=== PATIENT | female | born 1950 | race Caucasian/White ===

== ENCOUNTER 2018-04-27 11:59 | Outpatient (CLI) | payer MEDICARE | END 2018-04-27 12:00 | disposition home or self-care (01) | LOC: BICMAMMO 11:59 | PROVIDERS: ATTEND Internal Medicine | DX: Z12.31 Encounter for screening mammogram for malignant neoplasm of breast (principal); Z80.3 Family history of malignant neoplasm of breast | CPT/HCPCS: 77063; 77067 ==

== ENCOUNTER 2019-05-18 12:56 | Outpatient (CLI) | payer MEDICARE ==
--- NOTE | 2019-05-18 15:47 | MMO ---
Bilateral MAMMO Bilat Screen [facility]. CLINICAL HISTORY: Patient is 68 years old and is seen for screening. The patient has the following family history of breast cancer: aunt. The patient has a history of melanoma at age 52. VIEWS: The views performed were: bilateral craniocaudal with tomosynthesis and bilateral mediolateral oblique with tomosynthesis. FILMS COMPARED: The present examination has been compared to prior imaging studies performed at [facility] on 08/07/2013 and 01/28/2015, and at [facility] on 02/01/2017 and 04/27/2018. This study has been interpreted with the assistance of computer-aided detection. MAMMOGRAM FINDINGS: There are scattered fibroglandular densities. There are no suspicious masses, suspicious calcifications, or new areas of architectural distortion. IMPRESSION: THERE IS NO MAMMOGRAPHIC EVIDENCE OF MALIGNANCY. A ROUTINE FOLLOW-UP MAMMOGRAM IN 1 YEAR IS RECOMMENDED. THE RESULTS OF THIS EXAM WERE SENT TO THE PATIENT. ACR BI-RADS Category 1 - Negative MAMMOGRAPHY NOTE: 1. A negative mammogram report should not delay a biopsy if a dominant of clinically suspicious mass is present. 2. Approximately 10% to 15% of breast cancers are not detected by mammography. 3. Adenosis and dense breasts may obscure an underlying neoplasm. Reported by: KENYA ALEMAN MD Electonically Signed: [id number]
== END 2019-05-18 12:57 | disposition home or self-care (01) ==
LOC: BICMAMMO 12:56
PROVIDERS: ATTEND Internal Medicine
DX: Z12.31 Encounter for screening mammogram for malignant neoplasm of breast (principal); Z85.820 Personal history of malignant melanoma of skin; Z80.3 Family history of malignant neoplasm of breast
CPT/HCPCS: 77063; 77067

== ENCOUNTER 2019-12-09 10:39 | Emergency (ER) | payer MEDICARE ==
[2019-12-09 11:34] LABS: #Basophils 0.1 thou/uL (0.0-0.2); #Eosinphils 0.1 thou/uL (0.0-0.7); #Lymphocytes 1.3 thou/uL (1.20-3.40); #Monocytes 0.8 thou/uL (0.11-0.59); #Neutrophils 5.7 thou/uL (1.40-6.50); %Basophils 0.8 % (0.0-1.0); %Lymphocytes 16.6 % (21.0-51.0); %Monocytes 10.3 % (0.0-10.0); %Neutrophils 71.3 % (42.0-75.0); Hemoglobin 14.9 g/dL (12.0-16.0); Mean Corpuscular HGB CONC 35.2 g/dL (32.0-36.0); Mean Corpuscular Volume 90.8 fL (78.0-98.0); Mean Platelet Volume 7.1 fL (7.4-10.4); Platelet Count 215 thou/uL (130-400); Red Blood Cell (RBC) Count 4.66 mill/uL (4.20-5.40)
[2019-12-09] MEDS ORDERED: Ondansetron PF 4 MG/2 ML Vial ONE (11:38)
[2019-12-09 11:46] LABS: Bacteria/HPF 4+ HPF (None Seen); Bilirubin Negative (Negative); Blood, Urine Negative (Negative); Clarity Clear (Clear); Glucose, Urine (Dipstick) Normal (Negative); Leukocyte 75 Leu/uL (Negative); Nitrite 2+ (Negative); Protein, Urine (Dipstick) 20 mg/dL (Neg-Trace); RBC/HPF 0-3 HPF (0-3); Squamous Epithelial 0-3 HPF (0-3); Urobilinogen Normal mg/dL (Less than 2); WBC/HPF 0-3 HPF (0-3)
[2019-12-09] MEDS ORDERED: Morphine 4 MG/ML VIAL ONE (11:51)
[2019-12-09 11:55] LABS: ALT (SGPT) 28 U/L (8-55); AST (SGOT) 23 U/L (5-34); Albumin 3.8 g/dL (3.4-4.8); Alkaline Phosphatase 61 U/L (40-110); Anion Gap 12 mmol/L (10-20); BUN (Urea Nitrogen) 12 mg/dL (9.8-20.1); Bilirubin, Total 0.4 mg/dL (0.2-1.2); CK (CPK) 22 U/L (29-168); Calc. Creatinine Clearance 0 mL/min (70-130); Calcium 8.6 mg/dL (7.8-10.44); Carbon Dioxide 25 mmol/L (23-31); Chloride 104 mmol/L (98-107); Estimated GFR-MDRD 69; Globulin 2.7 g/dL (2.4-3.5); Glucose 209 mg/dL (80-115); Lipase 11 U/L (8-78); Potassium 4.3 mmol/L (3.5-5.1); Protein, Total 6.5 g/dL (6.0-8.3)
[2019-12-09 11:58] LABS: Sodium 137 mmol/L (136-145)
[2019-12-09] MEDS ORDERED: Iopamidol-370 76% 500 ML 1 ML ONE (14:20)
--- NOTE | 2019-12-09 16:57 | CT ---
CT ABDOMEN AND PELVIS WITH CONTRAST: Indications: Abdominal pain. Comparison: 07-05-2014 FINDINGS: Lung bases are clear. Liver, spleen, and pancreas unremarkable. Post cholecystectomy change. Mildly prominent common bile d uct again noted. Adrenal glands and kidneys unremarkable. Small bowel loops are normal. Colon again shows diverticulosis with sigmoid colon. There is mild mural thickening in the sigmoid an d rectum which is nonspecific. Mild stranding around the sigmoid probably represents chronic changes from prior diverticulitis which is documented on the 2014 study. No definite acute diverticulitis see n at this time. There is no extraluminal fluid, gas, or abscess. IMPRESSION: 1. Diverticulosis of the sigmoid again noted with some peripheral stranding which is probably chronic . No acute process identified. POS: [place]
--- NOTE | 2019-12-10 12:01 | EKG ---
Test Reason : Blood Pressure : / mmHG Vent. Rate : 065 BPM Atrial Rate : 065 BPM P-R Int : 126 ms QRS Dur : 072 ms QT Int : 426 ms P-R-T Axes : 019 -17 034 degrees QTc Int : 443 ms Normal sinus rhythm Septal infarct , age undetermined Abnormal ECG Confirmed by MARTINEZ ALMEIDA, ([id number]), web editor JENNIFER SRIVASTAVA ([id number]) on 12/10/2019 12:01:25 PM Referred By: Confirmed By:MICHAEL HENRIQUEZ MD
== END 2019-12-09 16:22 | disposition home or self-care (01) ==
LOC: ERS 10:39
DX: K57.32 Diverticulitis of large intestine without perforation or abscess without bleeding (principal); E11.9 Type 2 diabetes mellitus without complications; I10 Essential (primary) hypertension; K21.9 Gastro-esophageal reflux disease without esophagitis; F32.9 Major depressive disorder, single episode, unspecified; Z87.891 Personal history of nicotine dependence; Z79.899 Other long term (current) drug therapy
CPT/HCPCS: 36415; 51701; 74177; 80053; 81003; 81015; 82550; 83690; 83880; 84484; 85025; 93005; 96374; J2270; J2405; Q9967

== ENCOUNTER 2020-02-18 02:17 | Emergency (ER) | payer MEDICARE ==
[2020-02-18] MEDS ORDERED: Lidocaine Viscous Sol 2% 15 ml UD Cup ONE (03:04)
[2020-02-18] MEDS ORDERED: Mag-Al 1200 mg/1200 mg/30 ML UDCUP ONE (03:04)
--- NOTE | 2020-02-18 08:31 | RAD ---
RIGHT HIP 2 VIEWS: HISTORY: Fall, right hip pain. FINDINGS/IMPRESSION: No fracture or dislocation is seen. POS: OFF
--- NOTE | 2020-02-18 08:31 | RAD ---
AP PELVIS: HISTORY: Fall, right hip pain. FINDINGS/IMPRESSION: No acute fracture or dislocation. POS: OFF
--- NOTE | 2020-02-18 09:09 | CT ---
PRELIMINARY REPORT/[facility]/EMERGENCY AFTER HOURS PROCEDURE: EXAM: CT right Hip, without IV contrast. CLINICAL HISTORY: ER 9... Patient reports she tripped and fell earlier tonight. Patient reports she l anded on her buttocks, denies hitting her head. Patient is c/o right hip pain. Pt states pain starts at rt hip with radiation to mid thigh TECHNIQUE: Axial images were acquired through the right hip without IV contrast. Reformatted images w ere reviewed. COMPARISON: None provided. FINDINGS: BONES: No acute fracture. Multiple bone islands in the right proximal femur and acetabulum. JOINTS: Osteoarthrosis of the right knee, hip, SI joint, and pubic symphysis. No joint effusion. SOFT TISSUES: Sigmoid colon diverticulosis without evidence of diverticulitis. IMPRESSION: 1. No acute fracture. Of note, CT is not sensitive for the evaluation of stress fractures. If the p atient cannot bear weight, or recommend nonweightbearing precautions and follow-up MRI. 2. Sigmoid colon diverticulosis without evidence of diverticulitis. 3. Osteoarthrosis of the right knee, hip, SI joint, and pubic symphysis. ELECTRONICALLY SIGNED BY: Theo Colon DO Feb 18, 2020 4:19:00 AM CDT FINAL REPORT CT RIGHT HIP WITHOUT IV CONTRAST: I agree with the preliminary report given by Dr. Theo Colon of [facility]. POS: OFF
== END 2020-02-18 06:50 | disposition home or self-care (01) ==
LOC: ERS 02:17
DX: S70.01XA Contusion of right hip, initial encounter (principal); E11.9 Type 2 diabetes mellitus without complications; K21.9 Gastro-esophageal reflux disease without esophagitis; I10 Essential (primary) hypertension; F41.9 Anxiety disorder, unspecified; F32.9 Major depressive disorder, single episode, unspecified; Z87.891 Personal history of nicotine dependence; Z79.899 Other long term (current) drug therapy; W18.30XA Fall on same level, unspecified, initial encounter
CPT/HCPCS: 51701; 72170

== ENCOUNTER 2022-04-28 13:22 | Outpatient (CLI) | payer MEDICARE | END 2022-04-28 13:23 | disposition home or self-care (01) | LOC: BICMAMMO 13:22 | PROVIDERS: ATTEND Internal Medicine | DX: N64.52 Nipple discharge (principal); N63.25 Unspecified lump in the left breast, overlapping quadrants | CPT/HCPCS: 76642 ×2; 77066; G0279 ==

== ENCOUNTER 2024-05-02 21:54 | Inpatient (IN) | payer MEDICARE ==
[2024-05-02 22:21] LABS: #Basophils 0.06 10x3/uL (0.0-0.2); %Basophils 0.7 % (0.0-1.0); %Eosinophils 1.8 % (0.0-10.0); %Lymphocytes 26.4 % (21.0-51.0); %Monocytes 7.6 % (0.0-10.0); %Neutrophils 63.3 % (42.0-75.0); Hematocrit 34.1 % (36.0-47.0); Hemoglobin 11.4 g/dL (12.0-16.0); Mean Corpuscular HGB CONC 33.4 g/dL (32.0-36.0); Mean Corpuscular Hemoglobin 30.2 pg (27.0-31.0); Mean Corpuscular Volume 90.2 fL (78.0-98.0); Mean Platelet Volume 9.6 fL (7.4-10.4); Platelet Count 160 10x3/uL (130-400); RBC Distribution Width 13.2 % (11.5-14.5); Red Blood Cell (RBC) Count 3.78 mill/uL (4.20-5.40)
[2024-05-02] MEDS ORDERED: Atropine Sulfate 1 mg/10 ml Syringe ONE (22:32)
[2024-05-02 22:42] LABS: ALT (SGPT) 10 U/L (8-55); AST (SGOT) 14 U/L (5-34); Albumin 3.4 g/dL (3.4-4.8); Alkaline Phosphatase 66 U/L (40-110); Anion Gap 14 mmol/L (10-20); BUN (Urea Nitrogen) 18 mg/dL (9.8-20.1); Bilirubin, Total 0.4 mg/dL (0.2-1.2); Calc. Creatinine Clearance 0 mL/min (70-130); Calcium 7.8 mg/dL (7.8-10.44); Carbon Dioxide 21 mmol/L (23-31); Chloride 106 mmol/L (98-107); Estimated GFR 68; Globulin 2.5 g/dL (2.4-3.5); Glucose 286 mg/dL (83-110); Potassium 3.9 mmol/L (3.5-5.1); Protein, Total 5.9 g/dL (5.8-8.1); Sodium 137 mmol/L (136-145)
[2024-05-02 22:59] LABS: Magnesium 1.8 mg/dL (1.6-2.6)
[2024-05-02] MEDS ORDERED: tiZANidine HCl 4 MG TAB PO PRN (23:42)
[2024-05-02] MEDS ORDERED: Insulin Lispro 100 UNIT/ML 10 ML VIAL SC PRN ×2 (23:43)
[2024-05-02] MEDS ORDERED: Dextrose 50% Abboject 50 ML SYRINGE SLOW IVP PRN (23:43)
[2024-05-02] MEDS ORDERED: Glucagon 1 MG/ML KIT IM PRN (23:43)
[2024-05-02] MEDS ORDERED: Dextrose 5% in Water 1,000 ML IV PRN (23:43)
[2024-05-03] MEDS ORDERED: Ondansetron ODT 4 MG TAB PO PRN (00:26)
[2024-05-03] MEDS ORDERED: Ondansetron PF 4 MG/2 ML Vial IVP PRN (00:26)
[2024-05-03] MEDS ORDERED: Calcium Carbonate 500 MG ChewTAB PO PRN (00:26)
[2024-05-03] MEDS ORDERED: Ipratropium/Albuterol 3 ML NEB NEB PRN (00:33)
[2024-05-03 00:42] VITALS: BMI 31.6
[2024-05-03] MEDS: Lactated Ringer's 1,000 ML IV SCH (01:09)
[2024-05-03] MEDS: Atropine Sulfate 1 mg/10 ml Syringe IVP ONE (01:09)
[2024-05-03 01:14] LABS: Bilirubin Negative (Negative); Blood, Urine Negative (Negative); CAUTI Indications for Culture Alt mental st,lethar; Clarity Clear (Clear); Glucose, Urine (Dipstick) Normal (Negative); Ketone, Urine Negative (Negative); Leukocyte 25 Leu/uL (Negative); Nitrite Negative (Negative); Protein, Urine (Dipstick) Negative (Neg-Trace); RBC/HPF 0-3 HPF (0-3); Specific Gravity, Urine 1.002 (1.002-1.036); Squamous Epithelial 0-3 HPF (0-3); Urobilinogen Normal mg/dL (Less than 2); WBC/HPF 0-3 HPF (0-3)
[2024-05-03 01:15] LABS: Troponin I Less than 0.010 ng/mL (< 0.028)
[2024-05-03 01:17] LABS: Bacteria/HPF 1+ HPF (None Seen); Urine Culture Reflex No No
[2024-05-03 04:19] LABS: #Basophils 0.04 10x3/uL (0.0-0.2); %Basophils 0.4 % (0.0-1.0); %Eosinophils 2.9 % (0.0-10.0); %Lymphocytes 33.4 % (21.0-51.0); %Monocytes 8.9 % (0.0-10.0); %Neutrophils 54.2 % (42.0-75.0); Hematocrit 36.9 % (36.0-47.0); Hemoglobin 12.4 g/dL (12.0-16.0); Mean Corpuscular HGB CONC 33.6 g/dL (32.0-36.0); Mean Corpuscular Hemoglobin 29.6 pg (27.0-31.0); Mean Corpuscular Volume 88.1 fL (78.0-98.0); Mean Platelet Volume 9.4 fL (7.4-10.4); Platelet Count 161 10x3/uL (130-400); RBC Distribution Width 13.3 % (11.5-14.5); Red Blood Cell (RBC) Count 4.19 mill/uL (4.20-5.40)
[2024-05-03 04:42] LABS: Hemoglobin A1c 6.3 % (4.0-6.0)
[2024-05-03 04:48] LABS: ALT (SGPT) 11 U/L (8-55); AST (SGOT) 13 U/L (5-34); Albumin 3.6 g/dL (3.4-4.8); Alkaline Phosphatase 68 U/L (40-110); Anion Gap 10 mmol/L (10-20); BUN (Urea Nitrogen) 14 mg/dL (9.8-20.1); Bilirubin, Total 0.5 mg/dL (0.2-1.2); Calc. Creatinine Clearance 95 mL/min (70-130); Calcium 8.2 mg/dL (7.8-10.44); Carbon Dioxide 24 mmol/L (23-31); Chloride 110 mmol/L (98-107); Cholesterol 106 mg/dl (< 200 Desired); Estimated GFR 89; Globulin 2.7 g/dL (2.4-3.5); Glucose 129 mg/dL (83-110); HDL Cholesterol 35 mg/dL (>60 Neg Risk); LDL Cholesterol, Calculated 47 mg/dL; Magnesium 2.1 mg/dL (1.6-2.6); Potassium 3.8 mmol/L (3.5-5.1); Protein, Total 6.3 g/dL (5.8-8.1); Sodium 140 mmol/L (136-145); Triglycerides 119 mg/dL (Less than 150)
[2024-05-03] MEDS: Enoxaparin 40 MG (0.4 mL) SYRINGE SC SCH (09:41)
[2024-05-03] MEDS: Aspirin 81 mg Enteric Coated Tablet PO SCH (09:41)
[2024-05-03] MEDS: Albuterol 200 PUFF INH INH SCH (15:10)
[2024-05-03] MEDS: busPIRone HCl 10 MG TAB PO SCH (22:31)
[2024-05-03] MEDS: Sertraline 100 MG TAB PO SCH (22:31)
[2024-05-03] MEDS: ALPRAZolam 0.25 MG TAB PO PRN (22:31)
[2024-05-03] MEDS: Gabapentin 300 MG CAP PO PRN (22:32)
[2024-05-03] MEDS: Acetaminophen 325 MG TAB PO PRN (22:42)
[2024-05-04] MEDS: Pantoprazole DR 40 MG TAB PO SCH ×2 (02:14→10:39)
[2024-05-04] MEDS: Sodium Chloride 0.9% 1,000 ML IV SCH (06:25)
[2024-05-04] MEDS ORDERED: CEFAZOLIN 1 GM VIAL ONE (07:03)
[2024-05-04] MEDS ORDERED: CEFAZOLIN 2 GM VIAL ONE (07:03)
[2024-05-04] MEDS ORDERED: Gentamicin 80 MG/2 ML VIAL ONE (07:03)
[2024-05-04] MEDS ORDERED: Lidocaine 1% (PF) 30 ML VIAL ONE (07:04)
[2024-05-04] MEDS ORDERED: Midazolam HCl 2 mg/2 ml Vial ONE (08:18)
[2024-05-04] MEDS ORDERED: Pantoprazole DR 40 MG TAB PO SCH (09:00)
[2024-05-04] MEDS: Losartan 25 MG TAB PO SCH (09:50)
[2024-05-04] MEDS: Rosuvastatin 20 MG TAB PO SCH (09:50)
[2024-05-04] MEDS: Meloxicam 15 MG TAB PO SCH (09:51)
[2024-05-04 12:03] VITALS: TEMP 97.9
[2024-05-04 16:48] VITALS: BP 143/71
[2024-05-04] MEDS ORDERED: Doxycycline 100 MG CAP PO SCH (21:00)
== END 2024-05-04 16:09 | disposition home or self-care (01) | DRG 244 ==
LOC: ERS 21:54 → SUATTDRO 21:54 → 2NO 23:42 → INTOOBSV 23:42 → OBSVTOIN 05-03 19:52
PROVIDERS: ADMIT Internal Medicine; ATTEND Family Medicine
PROC: 0JH606Z Insertion of Pacemaker, Dual Chamber into Chest Subcutaneous Tissue and Fascia, Open Approach (ICD-10-PCS; principal; 2024-05-04)
PROC: 02H63JZ Insertion of Pacemaker Lead into Right Atrium, Percutaneous Approach (ICD-10-PCS; 2024-05-04)
PROC: 02HK3JZ Insertion of Pacemaker Lead into Right Ventricle, Percutaneous Approach (ICD-10-PCS; 2024-05-04)
DX: R00.1 Bradycardia, unspecified (principal); E11.9 Type 2 diabetes mellitus without complications; I10 Essential (primary) hypertension; Z66 Do not resuscitate; E78.5 Hyperlipidemia, unspecified; J44.9 Chronic obstructive pulmonary disease, unspecified; I95.9 Hypotension, unspecified; Z79.899 Other long term (current) drug therapy; K21.9 Gastro-esophageal reflux disease without esophagitis; Z85.820 Personal history of malignant melanoma of skin; F41.9 Anxiety disorder, unspecified; F32.A Depression, unspecified; Z87.891 Personal history of nicotine dependence
CPT/HCPCS: 33208; 36415; 36416; 70551; 71045; 80053; 80061; 81001; 82310; 83036; 83735; 84443; 84484; 85025; 93005; 93010; 93306; 93798; 94664; 94760; 96372; 96374; 99152; 99153; C1785; C1898; G0378; J0461; J0690; J1580; J1650; J2250; J7030; J7120